=== PATIENT | male | born 1995 | race Caucasian/White ===

== ENCOUNTER 2017-08-16 01:43 | Emergency (ER) | payer BC ==
[~2017-08-16] VITALS: Ht 172.7 cm; Wt 82.1 kg
[2017-08-16 01:52] VITALS: TEMP 36.3; Ht 172.7 cm; Wt 82.1 kg
[2017-08-16] MEDS ORDERED: SODIUM CHLORIDE 0.9% 1000ML 1,000 ML IV STA (02:01)
[2017-08-16] MEDS ORDERED: PSEUDOEPHEDRINE HCL 30 MG TAB PO STA (02:01)
[2017-08-16] MEDS ORDERED: DEXAMETHASONE **PF** INJ 10 MG/ML VIAL IV ONE (02:15)
[2017-08-16] MEDS ORDERED: OXYMETAZOLINE HCL 0.05% NA SPR 15 ML BTL ONE (02:15)
[2017-08-16 02:20] LABS: BASO % 0.1 %; BASO ABS # 0.01 K/uL (0-0.2); EOS % 0.5 %; EOS ABS # 0.05 K/uL (0-0.5); HEMATOCRIT 39.8 % (42-52); HEMOGLOBIN 14.2 g/dL (14.0-18.0); IG# 0.02 K/uL (0.00-0.02); LYMPH % 15.2 %; MEAN CELL VOLUME 84.1 fL (80-100); MEAN CORPUSCULAR HGB CONC 35.7 g/dl (32-36); MEAN PLATELET VOLUME 8.7 fL (7.4-10.4); MONO ABS # 1.11 K/uL (0.11-0.59); NEUT ABS # 6.63 K/uL (1.4-6.5); PLATELET COUNT 211 K/uL (130-400); RED CELL DISTRIBUTION WIDTH CV 12.3 % (11.5-14.5); RED CELL DISTRIBUTION WIDTH SD 37.9 fL (36.4-46.3); WHITE BLOOD COUNT 9.22 K/uL (4.8-10.8)
[2017-08-16 02:41] LABS: CALCIUM 9.2 mg/dl (8.5-10.1); CREATININE 1.09 mg/dl (0.60-1.40); POTASSIUM 3.5 mmol/L (3.5-5.1)
[2017-08-16 02:52] LABS: INFLUENZA B ANTIGEN Neg for Influ B (NEG)
[2017-08-16] MEDS ORDERED: DOXY100C2 PO (03:03)
[2017-08-16] MEDS ORDERED: ALBUTEROL HFA 8 GM INHALER INH STA (03:03)
[2017-08-16] MEDS ORDERED: PRED50TA PO (03:03)
[2017-08-16] MEDS ORDERED: DOXYCYCLINE HYCLATE 100 MG CAP PO ONE (03:15)
[2017-08-16 03:59] VITALS: BP 147/99; PULSE 76; O2SAT 100
--- NOTE | 2017-08-16 03:59 | EMERGENCY ROOM VISIT NOTE ---
History First contact with patient: 01:57 Chief Complaint: HEADACHE Stated Complaint: HORRIBLE HEADACHE,CONGESTION,FATIGUE,CHILLS History of Present Illness The patient is a 21 year old male who presents to the Emergency Room with complaints of sinus pain and congestion for the past several days with yellow- green rhinorrhea and subjective fever and chills. Patient went to urgent care yesterday and was given a Z-Josef for cold. Patient is allergic to penicillins and has hives and throat tightness. Patient denies chest pain, dyspnea, abdominal pain, vomiting, diarrhea, neck stiffness, sore throat. He has been coughing. He smokes. No recent travel. No drug use. Review of Systems See HPI for pertinent positives & negatives. A total of 10 systems reviewed and were otherwise negative. Past Medical/Surgical History None Social History Smoking Status: Current Some Day Smoker Alcohol Use: occasionally Drug Use: none Marital Status: in relationship Occupation Status: employed Current/Historical Medications Scheduled Doxycycline Hyclate (Vibramycin), 100 MG PO BID Prednisone (Prednisone), 50 MG PO DAILY Physical Exam Vital Signs Date Time Temp Pulse Resp B/P (MAP) Pulse Ox O2 Delivery O2 Flow Rate FiO2 08/16/17 03:01 76 20 147/99 100 Room Air 08/16/17 01:52 36.3 85 18 148/94 100 Room Air Physical Exam VITALS: Vitals are noted on the nurse's note and reviewed by myself. Vital signs mildly hypertensive GENERAL: Pleasant male, in no acute distress, nondiaphoretic, well-developed well-nourished. SKIN: The skin was without rashes, erythema, edema, or bruising. There is no tenting of the skin. Capillary reflex less than 2 seconds. HEAD: Normocephalic atraumatic. EARS: External auditory canals clear, tympanic membranes pearly marrero without erythema or effusion bilaterally. EYES: Pupils equal round and reactive to light and accommodation. Conjunctivae without injection, sclerae without icterus. Extraocular movements intact. NOSE: Patent, turbinates without inflammation or discharge. Bilateral maxillary and frontal sinus tenderness. MOUTH: Mucous membranes moist. Pharynx without erythema or exudate. Uvula midline. Airway patent. Tongue does not deviate. NECK: Supple without nuchal rigidity. No lymphadenopathy. No thyromegaly. Cervical spine is nontender. No JVD. No meningeal signs HEART: Regular rate and rhythm without murmurs gallops or rubs. LUNGS: Clear to auscultation bilaterally without wheezes, rales or rhonchi. No dullness to percussion. No retractions or accessory muscle use. ABDOMEN: Positive bowel sounds x 4. Normal tympanic percussion. Soft, nontender, without masses or organomegaly. Mathew sign negative. No guarding or rebound tenderness. MUSCULOSKELETAL: No muscle atrophy, erythema, or edema noted. NEURO: Patient was alert and oriented to person place and time. Normal sensation to light and sharp touch. No focal neurological deficits. Medical Decision & Procedures Laboratory Results 08/16/17 02:13 Red Blood Count 4.73, Mean Corpuscular Volume 84.1, Mean Corpuscular Hemoglobin 30.0, Mean Corpuscular Hemoglobin Concent 35.7, Mean Platelet Volume 8.7, Neutrophils (%) (Auto) 72.0, Lymphocytes (%) (Auto) 15.2, Monocytes (%) (Auto) 12.0, Eosinophils (%) (Auto) 0.5, Basophils (%) (Auto) 0.1, Neutrophils # (Auto ) 6.63, Lymphocytes # (Auto) 1.40, Monocytes # (Auto) 1.11, Eosinophils # (Auto ) 0.05, Basophils # (Auto) 0.01 08/16/17 02:13 Test 08/16/17 02:10 08/16/17 02:13 Influenza Type A Antigen Neg for Influ A (NEG) Influenza Type B Antigen Neg for Influ B (NEG) White Blood Count 9.22 K/uL (4.8-10.8) Red Blood Count 4.73 M/uL (4.7-6.1) Hemoglobin 14.2 g/dL (14.0-18.0) Hematocrit 39.8 % (42-52) Mean Corpuscular Volume 84.1 fL (80-100) Mean Corpuscular Hemoglobin 30.0 pg (25-34) Mean Corpuscular Hemoglobin Concent 35.7 g/dl (32-36) Platelet Count 211 K/uL (130-400) Mean Platelet Volume 8.7 fL (7.4-10.4) Neutrophils (%) (Auto) 72.0 % Lymphocytes (%) (Auto) 15.2 % Monocytes (%) (Auto) 12.0 % Eosinophils (%) (Auto) 0.5 % Basophils (%) (Auto) 0.1 % Neutrophils # (Auto) 6.63 K/uL (1.4-6.5) Lymphocytes # (Auto) 1.40 K/uL (1.2-3.4) Monocytes # (Auto) 1.11 K/uL (0.11-0.59) Eosinophils # (Auto) 0.05 K/uL (0-0.5) Basophils # (Auto) 0.01 K/uL (0-0.2) RDW Standard Deviation 37.9 fL (36.4-46.3) RDW Coefficient of Variation 12.3 % (11.5-14.5) Immature Granulocyte % (Auto) 0.2 % Immature Granulocyte # (Auto) 0.02 K/uL (0.00-0.02) Anion Gap 4.0 mmol/L (3-11) Est Creatinine Clear Calc Drug Dose 111.1 ml/min Estimated GFR () 111.1 Estimated GFR (Non- 95.8 BUN/Creatinine Ratio 6.7 (10-20) Calcium Level 9.2 mg/dl (8.5-10.1) Medications Administered Medications (Trade) Dose Ordered Sig/Tashi Route Start Time Stop Time Status Last Admin Dose Admin Sodium Chloride 1,000 ml @ 999 mls/hr Q1H1M STAT IV 08/16/17 02:01 08/16/17 03:01 DC 08/16/17 03:00 999 MLS/HR Dexamethasone Sodium Phosphate (Dexamethasone Inj Pf) 10 mg NOW ONCE IV 08/16/17 02:15 08/16/17 02:16 DC 08/16/17 03:00 10 MG Pseudoephedrine HCl (Sudafed Tab) 60 mg NOW STAT PO 08/16/17 02:01 08/16/17 02:04 DC 08/16/17 03:00 60 MG ED Course Prior records/ancillary studies reviewed. Additional history obtained from girlfriend Triage Nursing notes reviewed. The patient's history was concerning for sinus pain and congestion with headache. Differential diagnosis: Etiologies such as migraine headache, meningitis, sinusitis, CO exposure, ICH, SAH, infection, tumor, headache, sinus thrombosis, arterial dissection, as well as others were entertained. Physical examination findings: As above. Non-focal. ER treatment provided: Decadron, doxycycline, Sudafed On reassessment the patient felt better. Diagnostics interpreted by me: The labs revealed no leukocytosis Imaging studies: Head and sinus CT concerning for sinusitis This appears to be consistent with sinusitis with sinus headache. Patient felt much better to be medicated as above. He was advised to stop the Zithromax and begin doxycycline. He's been symptomatic for nearly a week. He had no signs of meningitis. He was well-appearing. He was advised to follow-up with ENT for recurrent sinus problems and family care here in the ER sooner for headache , fevers, neck stiffness, worsening signs or symptoms or as needed.. By the evaluation outlined above emergent etiologies such as meningitis, CO exposure , ICH, SAH, infection, temporal arteritis, tumor, sinus thrombosis, arterial dissection, as well as others were deemed relatively unlikely. Patient was neurovascularly and neurologically intact. He was well-appearing. He was tolerating fluids. The pt informed about the findings as listed above. All questions were answered and pleased with the treatment. Return instructions were outlined and the patient was discharged in stable condition. Outpatient prescription management: Doxycycline, prednisone Referral: The patient was referred back to their primary care physician for follow-up in 2 to 3 days for a recheck of the current condition. Medical Decision As above Medication Reconcilliation Current Medication List: was personally reviewed by me Blood Pressure Screening Patient's blood pressure: Elevated blood pressure Blood pressure disposition: Elevated BP felt to be situational Impression Primary Impression: Sinus headache Additional Impression: Sinusitis Departure Information Dispostion Home / Self-Care Condition GOOD Prescriptions Doxycycline Hyclate (VIBRAMYCIN) 100 Mg Cap 100 MG PO BID for 10 Days, #20 CAP Prov: Jessica Mcallister PA-C 08/16/17 Prednisone (Prednisone) 50 Mg Tab 50 MG PO DAILY for 4 Days, #4 TAB Prov: Jessica Mcallister PA-C 08/16/17 Referrals Aaron Christina MD Forms HOME CARE DOCUMENTATION FORM, IMPORTANT VISIT INFORMATION Patient Instructions Headaches Sinus, Sinusitis Acute, My [facility] Additional Instructions Doxycycline 100 mg: Take one pill twice daily for 10 days for your infection. All antibiotics can cause diarrhea. If this occurs and you feel worse or it does not resolve in 1-2 days follow up with your doctor or return to the Emergency Department as this could be signs of serious underlying problems. Any medication can cause an allergic reaction, stop the pills immediately and return to the ER for rash, hives, breathing difficulties, or swelling. Albuterol Inhaler: Take 2 puffs four times daily for five days, then as needed. Prednisone 50mg: Once daily until the prescription is finished. It is best to take this earlier in the day as some patients note occasional difficulty falling asleep when taken in the late evening. Acetaminophen(Tylenol) may be used for fever or pain. Use 1000mg every six hours as needed. Avoid using more than 3000mg in a 24 hour period. (AND/OR) Ibuprofen(Motrin, Advil) may be used for fever or pain. Use 600mg every six hours as needed. Take with food. Avoid using more than 2400mg in a 24 hour period. Do not use 2400mg per day for more than three consecutive days without physician direction. Prolonged inappropriate use can lead to stomach upset or ulcers. Afrin nasal spray: 2-3 sprays to each nostril twice daily as needed for congestion. Do not use for more than 3-4 days because it can lead to worsening rebound congestion. Pseudoephedrine(Sudaphed): 30-60mg every 6 hours as needed for nasal congestion. Do not take this with other stimulant products or supplements. Rest and drink plenty of fluids. Controlling your fever with Tylenol and Ibuprofen as above will make you feel better. Wash your hands after nose blowing, sneezing, or coughing. Most germs are spread through contact, therefore improper hygiene may result in your close contacts and loved ones becoming ill just like you. Continue current medications. Return to the ER for severe headache, neck stiffness, chest pain, difficulty breathing, fevers, vomiting, worsening of your condition, or as needed. Follow up with your primary physician / ENT this week for a recheck of your current condition. Problem Qualifiers
--- NOTE | 2017-08-16 06:35 | DIAGNOSTIC IMAGING REPORT ---
CT HEAD WITHOUT CONTRAST (CT) CLINICAL HISTORY: Headache and sinus pain. COMPARISON STUDY: No previous studies for comparison. TECHNIQUE: Axial CT of the brain is performed from the vertex to the skull base. IV contrast was not administered for this examination. A dose lowering technique was utilized adhering to the principles of ALARA. CT DOSE: FINDINGS: No intra or extra-axial mass lesions are visualized. There is no CT evidence of acute cortical infarction. There is no evidence of midline shift. There is no acute hemorrhage. No calvarial fractures are visualized. There is no evidence of pathologic ventricular dilatation. There is near complete opacification of the left maxilla sinus. Multiple left-sided ethmoid air cells are opacified. There is a small air-fluid level within the left frontal sinus. IMPRESSION: 1. Inflammatory changes in the left frontal ethmoid and maxillary sinuses. 2. Otherwise no acute intracranial findings Electronically signed by: Jonatan Ma M.D. 08/16/2017 6:34 AM Dictated Date/Time: 08/16/2017 6:33 AM
--- NOTE | 2017-08-16 07:45 | DIAGNOSTIC IMAGING REPORT ---
SINUS CT WITHOUT CONTRAST CLINICAL HISTORY: Headache. Sinus pain. COMPARISON STUDY: None. Technique: Helical axial images of the sinuses were obtained without IV contrast. Coronal reformats were viewed. A dose lowering technique was utilized adhering to the principles of ALARA. FINDINGS: Mastoid air cells are clear. The head CT will be reported separately. Orbits are unremarkable. The left maxilla sinus is nearly completely opacified. There is widening of the left maxillary sinus ostium. The mid to anterior left ethmoids sinuses are opacified. There is moderate mucosal thickening of the left frontal sinuses with an air-fluid level. There is mild mucosal thickening of the remainder of the sinuses. The left ostiomeatal complex is occluded. The left frontoethmoidal and sphenoethmoidal recesses are also occluded. No bony destruction. Cribriform plate is intact. There is no significant deviation of the nasal septum. IMPRESSION: Near-complete opacification of the left maxillary sinus with extensive left ethmoid and frontal sinus opacification and an air-fluid level within left frontal sinus which may reflect acute on chronic sinusitis. Occluded major drainage pathways, as described above. Electronically signed by: Aleksandr Stanford M.D. 08/16/2017 7:44 AM Dictated Date/Time: 08/16/2017 7:38 AM
== END 2017-08-16 04:00 | disposition home or self-care (01) ==
LOC: C.EDB 01:45 → C.EDA 04:00
DX: R51 Headache (principal); F17.200 Nicotine dependence, unspecified, uncomplicated; J32.9 Chronic sinusitis, unspecified

== ENCOUNTER 2017-10-19 16:04 | Emergency (ER) | payer BC ==
[~2017-10-19] VITALS: Ht 172.7 cm; Wt 85.6 kg
[~2017-10-19 16:04] MED LIST: DOXY100C2 PO
[2017-10-19 16:11] VITALS: BP 143/84; PULSE 79; TEMP 36.9; O2SAT 100; Ht 172.7 cm; Wt 85.6 kg
[2017-10-19] MEDS ORDERED: AZIT500T3 PO (16:26)
--- NOTE | 2017-10-19 19:42 | EMERGENCY ROOM VISIT NOTE ---
History Report prepared by Liset: Evan Huffman Under the Supervision of: Dr. Evan Gibson M.D. First contact with patient: 16:16 Chief Complaint: SORETHROAT Stated Complaint: SORE/DRY THROAT,COUGHING,CONGESTED History of Present Illness The patient is a 22 year old male who presents to the Emergency Room with complaints of constant dry and sore throat for the past 2 days. Patient states that it hurts to swallow anything. He adds that he felt like he had a fever yesterday. He states that he did not take his temperature with a thermometer. Patient adds that he has felt fatigued recently. He adds that a girl he was hanging out with yesterday was sick and that his boss has recently been sick. Patient denies body aches, shortness of breath and chest pain. Patient adds that he is allergic to penicillin. He states that his throat swells up and closes when he takes it. Source of History: patient Onset: 2 days ago Position: throat Quality: ache Timing: constant Modifying Factors (Worsening): other (Swallowing) Modifying Factors (Relieving): other (None) Associated Symptoms: + fevers, + fatigue, No chest pain Note: Patient denies body aches. Review of Systems See HPI for pertinent positives & negatives. A total of 6 systems reviewed and were otherwise negative. Past Medical & Surgical No pertinent past medical & surgical history. Family History No pertinent family history. Social History Smoking Status: Current Every Day Smoker Alcohol Use: occasionally Drug Use: none Marital Status: in relationship Occupation Status: employed Current/Historical Medications Scheduled Azithromycin (Azithromycin), 500 MG PO DAILY Doxycycline Hyclate (Vibramycin), 100 MG PO BID Allergies Uncoded Allergies: PENICILLIN (Allergy, Severe, ANAPHYLAXIS, 08/16/17) Physical Exam Vital Signs Date Time Temp Pulse Resp B/P (MAP) Pulse Ox O2 Delivery O2 Flow Rate FiO2 10/19/17 16:11 100 Room Air 10/19/17 16:11 36.9 79 18 143/84 100 Room Air Physical Exam Constitutional: Vital signs reviewed. Eyes: Pupils are equal round reactive to light. Conjunctiva are noninjected. ENT: Pharynx shows diffuse erythema posteriorly without ON CALL PHARMACY TECHNICIAN, uvular edema or shift, or trismus. No exudates. Mucous membranes are moist. Neck supple without meningeal signs. Respiratory: Clear to auscultation bilaterally. Breath sounds are equal bilaterally. Cardiovascular: Regular rate and rhythm. No rubs or gallops. GI: Soft, nondistended and nontender. Bowel sounds are present. No organomegaly. Musculoskeletal: No peripheral edema. No lower extremity tenderness. Integumentary: No cyanosis. Neurological: The patient is awake and alert. No focal deficits. Psychiatric: Normal affect. Medical Decision & Procedures ED Course 1616: The patient was evaluated in room A3. A complete history and physical exam was performed. 1635: Upon reevaluation, the patient appeared to have improvement of his symptoms. I discussed tonight's findings with him. He verbalized agreement of the treatment plan. He was discharged home. Medical Decision This is a 21-year-old male presents with sore throat. Differential diagnosis includes viral pharyngitis, strep pharyngitis, infectious mononucleosis. I did perform a limited focused review of portions of the patient's old chart on the electronic medical record. The patient was seen in August for sinusitis. I did evaluate the patient as noted above. He does have diffuse erythema to the posterior oropharynx. After discussion with the patient I did treat him empirically for presumed strep. I did treat him with 5 days of azithromycin 500 mg daily as he is allergic to penicillin. He was advised to follow-up with his doctor. He was discharged in good condition. Medication Reconcilliation Current Medication List: was personally reviewed by me Blood Pressure Screening Patient's blood pressure: Elevated blood pressure Blood pressure disposition: Referred to PCP Impression Primary Impression: Pharyngitis Scribe Attestation The scribe's documentation has been prepared under my direct and personally reviewed by me in its entirety. I confirm that the note above accurately reflects all work, treatment, procedures, and medical decision making performed by me. Departure Information Dispostion Home / Self-Care Prescriptions Azithromycin (AZITHROMYCIN) 500 Mg Tab 500 MG PO DAILY for 5 Days, #5 TAB Prov: Evan Gibson M.D. 10/19/17 Referrals No Doctor, Assigned (PCP) Forms HOME CARE DOCUMENTATION FORM, IMPORTANT VISIT INFORMATION Patient Instructions ED Strep Pharyngitis Poss, My [facility] Additional Instructions You have been examined and treated today on an emergency basis only. This is not a substitute for, or an effort to provide, complete comprehensive medical care. It is impossible to recognize and treat all injuries or illnesses in a single emergency department visit. It is therefore important that you follow up closely with your physician. Call as soon as possible for an appointment. Return for worsening symptoms or if you develop trouble breathing, inability to swallow liquids, vomiting, or any other concerning symptoms. Problem Qualifiers Primary Impression: Pharyngitis Pharyngitis/tonsillitis etiology: unspecified etiology Qualified Codes: J02.9 - Acute pharyngitis, unspecified
== END 2017-10-19 19:42 | disposition home or self-care (01) ==
LOC: C.EDB 16:06 → C.EDA 19:42
DX: J02.9 Acute pharyngitis, unspecified (principal); F17.200 Nicotine dependence, unspecified, uncomplicated; Z88.0 Allergy status to penicillin